=== PATIENT | male | born 1950 | race Caucasian/White ===

== ENCOUNTER 2023-08-25 13:22 | Emergency (ER) | payer OTHER ==
[2023-08-25] MEDS ORDERED: HYDROCODONE/APAP 7.5/325 MG TAB ONE (14:07)
[2023-08-25] MEDS ORDERED: IBUPROFEN 400 MG TAB ONE (14:07)
--- NOTE | 2023-08-25 14:09 | RAD REPORT ---
EXAM DESCRIPTION: RAD - Hand Left 3 View - 08/25/2023 2:02 pm CLINICAL HISTORY: PAIN COMPARISON: No comparisons FINDINGS/IMPRESSION: No acute fracture. No malalignment. Moderate degenerative changes are present a t the base of the thumb.
--- NOTE | 2023-08-25 14:10 | RAD REPORT ---
EXAM DESCRIPTION: RAD - Hand Right 3 View - 08/25/2023 2:02 pm CLINICAL HISTORY: PAIN COMPARISON: Hand Right 3 View dated 05/10/2016 FINDINGS/IMPRESSION: Longitudinally oriented nondisplaced fracture involving the fourth proximal pha lanx. No intra-articular extension. The fracture is centered at the mid diaphysis. Moderate degenerat kamini changes are present at the base of the thumb. Partially imaged plate in the distal ulna.
--- NOTE | 2023-08-25 14:50 | ER ---
Nurse's Notes [facility] Name: Nnamdi Smith Age: 73 yrs Sex: Male : 1950 Arrival Date: 08/25/2023 Time: 13:22 Bed 12 Private MD: Diagnosis: Nondisplaced fracture of proximal phalanx of other finger, initial encounter for closed fracture-right fourth finger Presentation: 08/24 13:30 Chief complaint: Patient states: fell and caught self with right hand, it hurts and is ll1 swollen. Coronavirus screen: At this time, the client does not indicate any symptoms associated with coronavirus-19. Ebola Screen: No symptoms or risks identified at this time. Initial Sepsis Screen: Does the patient meet any 2 criteria? No. Patient's initial sepsis screen is negative. Does the patient have a suspected source of infection? No. Patient's initial sepsis screen is negative. Risk Assessment: Do you want to hurt yourself or someone else? Patient reports no desire to harm self or others. Onset of symptoms is unknown. 13:30 Method Of Arrival: Ambulatory ll1 13:30 Acuity: ANDERS 4 ll1 Triage Assessment: 13:34 General: Appears in no apparent distress. Behavior is calm, cooperative, appropriate ll1 for age. Pain: Complains of pain in right hand. Musculoskeletal: Reports pain in right hand. Historical: - Allergies: 13:34 No Known Allergies; ll1 - PMHx: 13:34 Diabetes - NIDDM; ll1 - PSHx: 13:34 Appendectomy; Operative procedure on knee; ll1 - Immunization history:: Adult Immunizations up to date. - Infectious Disease History:: Denies. - Social history:: Smoking status: Patient denies any tobacco usage or history of. Screenin:22 [facility] ED Fall Risk Assessment (Adult) History of falling in the last 3 months, ld1 including since admission No falls in past 3 months (0 pts) Confusion or Disorientation No (0 pts) Intoxicated or Sedated No (0 pts) Impaired Gait No (0 pts) Mobility Assist Device Used No (0 pt) Altered Elimination No (0 pt) Score/Fall Risk Level 0 - 2 = Low Risk Oriented to surroundings, Maintained a safe environment, Educated pt \T\ family on fall prevention, incl call for assistance when getting out of bed, Assessed \T\ reinforced patient's understanding of fall precautions, Provided non-skid footwear, Hourly rounding (assess needs \T\ fall precautionary measures) done, Used ambulatory aids as needed (educated on \T\ assisted with), Used gait belt as appropriate. Abuse screen: Denies threats or abuse. Denies injuries from another. Nutritional screening: No deficits noted. Tuberculosis screening: No symptoms or risk factors identified. Assessment: 16:21 General: Appears in no apparent distress. comfortable, Behavior is calm, cooperative, ld1 appropriate for age. Pain: Denies pain. Neuro: Level of Consciousness is awake, alert, obeys commands, Oriented to person, place, time, situation, Appropriate for age. Cardiovascular: Capillary refill < 3 seconds Patient's skin is warm and dry. Respiratory: Airway is patent Respiratory effort is even, unlabored. GI: Abdomen is flat, non-distended. : No signs and/or symptoms were reported regarding the genitourinary system. EENT: No signs and/or symptoms were reported regarding the EENT system. Derm: No signs and/or symptoms reported regarding the dermatologic system. Musculoskeletal: No signs and/or symptoms reported regarding the musculoskeletal system. Vital Signs: 13:30 BP 156 / 73; Pulse 52; Resp 18; Temp 97; Pulse Ox 100% ; ll1 16:21 BP 149 / 72; Pulse 61; Resp 18; Pulse Ox 100% on R/A; ld1 ED Course: 13:25 Patient arrived in ED. ra3 13:25 Jd Barone PA is PHCP. cp 13:26 Jd Wynn MD is Attending Physician. cp 13:34 Triage completed. ll1 13:34 Arm band placed on left wrist. Patient placed in an exam room, on a stretcher, on pulse ll1 oximetry, Patient notified of wait time. 14:04 XRAY Hand RIGHT 3 View In Process Unspecified. EDMS 14:04 XRAY Hand LEFT 3 View In Process Unspecified. EDMS 14:47 Larry Torres MD is Referral Physician. cp 16:20 Kaela Campbell, ALEXSANDER is Primary Nurse. ld1 16:20 No provider procedures requiring assistance completed. Patient did not have IV access ld1 during this emergency room visit. Claude wrap to right wrist. 16:22 Patient has correct armband on for positive identification. Placed in gown. Bed in low ld1 position. Call light in reach. Side rails up X2. Pulse ox on. NIBP on. Door closed. Noise minimized. Warm blanket given. Administered Medications: 14:11 Not Given (Patient Refused): hydrocodone-acetaminophen(7.5 mg-325 mg) 1 tabs PO once; ld1 RASS on ADMIN: Combtv4, Very Agttd3, Agttd2, Rstlss1, AlertClm0, Drwsy-1, Lt Sdtn-2, Mod Sdtn-3, Dp Sdtn-4, UnArsble-5 14:11 Drug: Ibuprofen PO 800 mg PO once Route: PO; ld1 Medication: 16:22 VIS not applicable for this client. ld1 Outcome: 14:49 Discharge ordered by MD. 16:22 Discharged to home ambulatory, ld1 16:22 Condition: stable 16:22 Discharge instructions given to patient, Instructed on discharge instructions, follow up and referral plans. Demonstrated understanding of instructions, follow-up care, medications, Prescriptions given X 1, 16:37 Patient left the ED. ld1 Signatures: Dispatcher [employer] EDMS Jd Barone PA PA cp Lewis, Lynsay RN RN ll1 Kaela Campbell RN RN ld1 Erin Varghese ra3
--- NOTE | 2023-08-25 14:50 | EDPHYS ---
Physician Documentation [facility] Name: Nnamdi Smith Age: 73 yrs Sex: Male : 1950 Arrival Date: 08/25/2023 Time: 13:22 Bed 12 Private MD: ED Jd Eldridge HPI: 08/24 13:40 This 73 yrs old Male presents to ER via Ambulatory with complaints of Hand Injury. cp 13:40 The patient or guardian reports injury, pain. The complaints affect the right hand and cp left hand. Context: resulted from a fall, slipped. Onset: The symptoms/episode began/occurred today. Associated signs and symptoms: The patient has no apparent associated signs or symptoms. Historical: - Allergies: 13:34 No Known Allergies; ll1 - PMHx: 13:34 Diabetes - NIDDM; ll1 - PSHx: 13:34 Appendectomy; Operative procedure on knee; ll1 - Immunization history:: Adult Immunizations up to date. - Infectious Disease History:: Denies. - Social history:: Smoking status: Patient denies any tobacco usage or history of. ROS: 13:45 MS/extremity: Positive for injury or acute deformity, ecchymosis, pain, swelling, cp tenderness, of the right hand and left hand, Negative for paresthesias, 13:45 Constitutional: HX per HPI cp 13:45 All other systems are negative, Exam: 13:50 Constitutional: The patient appears in no acute distress, alert, awake, non-toxic, well cp developed, well nourished, 13:50 Head/Face: Normocephalic, atraumatic. cp 13:50 Neck: ROM/movement: is normal, is supple, without pain, no range of motions limitations, 13:50 Chest/axilla: Inspection: normal, 13:50 Cardiovascular: Rate: normal, Rhythm: regular, 13:50 Back: pain, is absent, ROM is normal, 13:50 Musculoskeletal/extremity: Extremities: noted in the right hand: decreased ROM, ecchymosis, swelling, tenderness, noted in the left hand: tenderness, no evidence of decreased ROM, deformity, Perfusion: the extremity is normally perfused throughout, the right hand and left hand Sensation intact. 13:50 Neuro: Orientation: to person, place \T\ time. Mentation: is normal, Gait: is steady, Vital Signs: 13:30 BP 156 / 73; Pulse 52; Resp 18; Temp 97; Pulse Ox 100% ; ll1 16:21 BP 149 / 72; Pulse 61; Resp 18; Pulse Ox 100% on R/A; ld1 Procedures: 15:00 Splinting: Splint applied to right hand using Orthoglass splint, ulna gutter type. cp applied by nurse. Examined by me, post splint application: neurovascular intact, Patient tolerated well. MDM: 13:39 Patient medically screened. cp 14:00 Differential diagnosis: dislocation, open fracture, closed fracture, contusion. cp 14:48 Data reviewed: vital signs, nurses notes, radiologic studies, plain films. cp 14:48 I considered the following discharge prescriptions or medication management in the emergency department Medications were administered in the Emergency Department. See MAR. Counseling: I had a detailed discussion with the patient and/or guardian regarding the historical points, exam findings, and any diagnostic results supporting the discharge/admit diagnosis, radiology results, the need for outpatient follow up, a orthopedic surgeon, to return to the emergency department if symptoms worsen or persist or if there are any questions or concerns that arise at home. Response to treatment: the patient's symptoms have markedly improved after treatment, and as a result, I will discharge patient. 08/24 13:34 Order name: XRAY Hand RIGHT 3 View; Complete Time: 14:39 08/24 14:39 Interpretation: Report reviewed. 08/24 13:34 Order name: XRAY Hand LEFT 3 View; Complete Time: 14:39 08/24 14:38 Order name: Splint - Ulnar Gutter; Complete Time: 16:31 cp Administered Medications: 14:11 Not Given (Patient Refused): hydrocodone-acetaminophen(7.5 mg-325 mg) 1 tabs PO once; ld1 RASS on ADMIN: Combtv4, Very Agttd3, Agttd2, Rstlss1, AlertClm0, Drwsy-1, Lt Sdtn-2, Mod Sdtn-3, Dp Sdtn-4, UnArsble-5 14:11 Drug: Ibuprofen PO 800 mg PO once Route: PO; ld1 Disposition Summary: 08/25/23 14:49 Discharge Ordered Notes: Location: Home cp Problem: new cp Symptoms: have improved cp Condition: Stable cp Diagnosis - Nondisplaced fracture of proximal phalanx of other finger, initial encounter for cp closed fracture - right fourth finger Followup: cp - With: Larry Torres MD - When: 1 week - Reason: Recheck today's complaints Discharge Instructions: - Discharge Summary Sheet cp - Finger Fracture, Adult cp Forms: - Medication Reconciliation Form cp - Antibiotic Education cp - Prescription Opioid Use cp - Patient Portal Instructions cp - Leadership Thank You Letter cp Prescriptions: - Ibuprofen 800 mg Oral Tablet - take 1 tablet ORAL route every 8 hours As needed take with food; 30 tablet; cp Refills: 0, Product Selection Permitted Addendum: 08/27/2023 07:46 Co-signature as Attending Physician, Jd Wynn MD I agree with the assessment and c mathis plan of care. Signatures: Dispatcher [employer] Jd Perez MD MD cha Page, Corey, PA PA cp Lewis, Lynsay RN RN ll1 Kaela Campbell RN RN ld1
[2023-08-25 17:17] VITALS: BP 149/72; TEMP 97; O2SAT 100
== END 2023-08-25 16:37 | disposition home or self-care (01) ==
LOC: ER 13:22
PROC: 2W3JX1Z Immobilization of Right Finger using Splint (ICD-10-PCS; principal; 2023-08-25)
DX: S62.644A Nondisplaced fracture of proximal phalanx of right ring finger, initial encounter for closed fracture (principal)
CPT/HCPCS: 99284

== ENCOUNTER 2024-02-27 16:09 | Emergency (ER) | payer OTHER ==
--- NOTE | 2024-02-27 18:35 | RAD REPORT ---
Procedure: Chest Single View HISTORY: Chest pain COMPARISON: none FINDINGS: The lungs appear clear of acute infiltrate. The lungs are moderately hyperaerated. No significant pleural effusion noted. The heart is normal size. IMPRESSION: Hyperaerated lungs probably COPD. No acute abnormality is displayed
[2024-02-27 18:50] LABS: Absolute Basophils 0.1 K/uL (0-0.5); Absolute Eosinophils 0.1 K/uL (0-0.5); Absolute Lymphocytes (CBC) 1.8 K/uL (0.7-4.9); Absolute Monocytes 0.6 K/uL (0.1-1.3); Absolute Neutrophil 3.7 K/uL (1.8-8.0); Eosinophils % 1.7 % (0-4.4); Hematocrit 44.3 % (39.6-49.0); Hemoglobin 14.7 g/dL (13.6-17.9); Lymphocytes % 28.5 % (15.3-44.8); MCH 29.9 pg (27.0-35.0); MCHC 33.2 g/dL (32.0-36.0); Monocytes % 9.6 % (3.3-12.3); Neutrophils % 59.2 % (41.7-73.7); Nucleated Red Blood Cells % 0.1 % (0-0); PT Prothrombin Time 11.9 SECONDS (9.4-12.5); Platelets 320 thou/uL (152-406); Protime INR 1.06; RBC Red Blood Cell Count 4.92 M/uL (4.33-5.43); Red Cell Distribution Width 13.8 % (12.1-15.2)
[2024-02-27 19:07] LABS: Albumin 4.5 g/dL (3.4-5.0); Albumin/Globulin Ratio 1.2 (1.1-1.8); Anion Gap 7.2 mEq/L (5.0-15.0); Bilirubin Direct 0.2 mg/dL (0-0.2); Bilirubin Indirect, Calculated 0.3 mg/dL (0.2-0.8); Bilirubin Total 0.5 mg/dL (0.2-1.0); Globulin 3.7 g/dL (2.3-3.5); Magnesium 2.3 mg/dL (1.6-2.4); Potassium 4.2 mEq/L (3.5-5.1); Protein, Total 8.2 g/dL (6.4-8.2); Troponin High Sensitivity 8.8 pg/mL (<58.9)
[2024-02-27] MEDS ORDERED: cloNIDine HCL 0.1 MG TAB ONE (20:07)
--- NOTE | 2024-02-27 20:15 | ER ---
Nurse's Notes [facility] Name: Nnamdi Smith Age: 73 yrs Sex: Male : 1950 Arrival Date: 02/27/2024 Time: 16:09 Bed 9 Private MD: Diagnosis: Essential (primary) hypertension;First degree AV block Presentation: 02/26 16:26 Chief complaint: Sent by Dr. Velázquez for abnormal EKG, showed sinus otoniel with first hb degree block and moderate ST depression. Pt denies pain/SOB. Coronavirus screen: At this time, the client does not indicate any symptoms associated with coronavirus-19. Ebola Screen: No symptoms or risks identified at this time. Initial Sepsis Screen: Does the patient meet any 2 criteria? No. Patient's initial sepsis screen is negative. Does the patient have a suspected source of infection? No. Patient's initial sepsis screen is negative. Risk Assessment: Do you want to hurt yourself or someone else? Patient reports no desire to harm self or others. Onset of symptoms was February 27, 2024. 16:26 Method Of Arrival: Ambulatory hb 16:26 Acuity: ANDERS 3 hb Historical: - Allergies: 16:30 No Known Allergies; hb - PMHx: 16:30 Diabetes - NIDDM; Hypertension (Diabetes - NIDDM); hb - PSHx: 16:30 Appendectomy; Operative procedure on knee; hb - Immunization history:: Adult Immunizations up to date. - Infectious Disease History:: Denies. - Social history:: Smoking status: Patient denies any tobacco usage or history of. Screenin:08 [facility] ED Fall Risk Assessment (Adult) History of falling in the last 3 months, dd2 including since admission No falls in past 3 months (0 pts). [facility] ED Fall Risk Assessment (Adult) History of falling in the last 3 months, including since admission Confusion or Disorientation No (0 pts) Intoxicated or Sedated No (0 pts) Impaired Gait No (0 pts) Mobility Assist Device Used No (0 pt) Altered Elimination No (0 pt) Score/Fall Risk Level 0 - 2 = Low Risk Oriented to surroundings, Maintained a safe environment, Educated pt \T\ family on fall prevention, incl call for assistance when getting out of bed, Assessed \T\ reinforced patient's understanding of fall precautions, Hourly rounding (assess needs \T\ fall precautionary measures) done. Abuse screen: Denies threats or abuse. Nutritional screening: No deficits noted. Tuberculosis screening: No symptoms or risk factors identified. Assessment: 20:08 General: Appears in no apparent distress. Behavior is calm, cooperative, appropriate dd2 for age. Pain: Denies pain. Neuro: Espinoza Agitation-Sedation Scale (RASS): 0 - Alert and Calm Level of Consciousness is awake, alert, obeys commands, Oriented to person, place, time, situation, Appropriate for age. Cardiovascular: Reports ABNORMAL LABS Heart tones S1 S2 present Patient's skin is warm and dry. Respiratory: Airway is patent Respiratory effort is even, unlabored, Respiratory pattern is regular, symmetrical, Breath sounds are clear bilaterally. GI: No deficits noted. No signs and/or symptoms were reported involving the gastrointestinal system. Abdomen is non-distended. : No deficits noted. No signs and/or symptoms were reported regarding the genitourinary system. EENT: No deficits noted. No signs and/or symptoms were reported regarding the EENT system. Derm: No deficits noted. No signs and/or symptoms reported regarding the dermatologic system. Musculoskeletal: Circulation, motion, and sensation intact. Range of motion: intact in all extremities. 20:10 Reassessment: D/C ON HOLD FOR MEDICATION ADMINISTRATION AND BP RE-CHECK. dd2 Vital Signs: 16:26 BP 186 / 71; Pulse 51; Resp 16; Temp 97.3; Pulse Ox 100% on R/A; Weight 83.01 kg; hb Height 6 ft. 1 in. ; Pain 0/10; 20:13 BP 226 / 98; Pulse 51; sb4 20:30 BP 207 / 79; Pulse 59; Resp 16; Pulse Ox 99% ; dd2 20:59 BP 197 / 77; Pulse 62; Resp 16; Temp 98.3; Pulse Ox 100% ; Pain 0/10; dd2 16:26 Body Mass Index 24.14 (83.01 kg, 185.42 cm) hb 16:26 Pain Scale: Adult hb 20:59 Pain Scale: Adult dd2 Ekaterina Coma Score: 20:08 Eye Response: spontaneous(4). Motor Response: obeys commands(6). Verbal Response: dd2 oriented(5). Total: 15. ED Course: 16:12 Patient arrived in ED. im 16:18 Gertrude Garber PA-C is PHCP. sb4 16:18 Frank Corley MD is Attending Physician. sb4 16:30 Triage completed. hb 16:30 Arm band placed on. hb 18:06 XRAY Chest (1 view) In Process Unspecified. EDMS 19:46 DAHLIA LYNN, RN is Primary Nurse. dd2 20:08 Patient has correct armband on for positive identification. Bed in low position. Call dd2 light in reach. Client placed on continuous cardiac and pulse oximetry monitoring. NIBP monitoring applied. Door closed. Noise minimized. Pillow given. Verbal reassurance given. 20:08 No provider procedures requiring assistance completed. Patient maintains SpO2 dd2 saturation greater than 95% on room air. 20:15 Humberto Encinas MD is Referral Physician. sb4 20:59 Provided Education on: D/C EDUCATION. dd2 20:59 IV discontinued, intact, bleeding controlled, No redness/swelling at site. Pressure dd2 dressing applied. Administered Medications: 20:10 Drug: cloNIDine PO 0.1 mg PO once Route: PO; dd2 20:48 Follow up: Response: No adverse reaction dd2 Medication: 20:08 VIS not applicable for this client. dd2 Outcome: 20:15 Discharge ordered by MD. sb4 20:59 Discharged to home ambulatory, dd2 20:59 Condition: stable 20:59 Discharge instructions given to patient, Instructed on discharge instructions, follow up and referral plans. Demonstrated understanding of instructions, follow-up care, 21:01 Patient left the ED. dd2 Signatures: Dispatcher [employer] EDCA Chapis Brannon RN RN Gertrude Garber PA-C PA-C sb4 Nuria Green DAHLIA LYNN, RN RN dd2
--- NOTE | 2024-02-27 20:15 | EDPHYS ---
Physician Documentation [facility] Name: Nnamdi Smith Age: 73 yrs Sex: Male : 1950 Arrival Date: 02/27/2024 Time: 16:09 Bed 9 Private MD: ED Physician Frank Corley HPI: 02/26 19:31 This 73 yrs old Male presents to ER via Ambulatory with complaints of Abnormal Lab sb4 Results - EKG. 19:31 Patient was at his primary care's office today and sent here for further evaluation sb4 because his blood pressure was elevated and his EKG supposedly showed some changes. He denies any chest pain, shortness of breath, blurry vision, headache, dizziness. Primary care stated that his blood pressure was 184/98 and his EKG showed sinus bradycardia with a first-degree block and ST depressions in the lateral leads which is new compared to prior. Historical: - Allergies: 16:30 No Known Allergies; hb - PMHx: 16:30 Diabetes - NIDDM; Hypertension (Diabetes - NIDDM); hb - PSHx: 16:30 Appendectomy; Operative procedure on knee; hb - Immunization history:: Adult Immunizations up to date. - Infectious Disease History:: Denies. - Social history:: Smoking status: Patient denies any tobacco usage or history of. ROS: 19:31 Constitutional: Negative for fever, chills, and weight loss, sb4 19:31 All other systems are negative, Exam: 19:31 Constitutional: This is a well developed, well nourished patient who is awake, alert, sb4 and in no acute distress. Head/Face: Normocephalic, atraumatic. Eyes: Extra-ocular motions intact. Periorbital areas with no swelling, redness, or edema. ENT: Mucous membranes moist. Cardiovascular: Regular rate and rhythm with a normal S1 and S2. Respiratory: No increased work of breathing, no retractions or nasal flaring. Abdomen/GI: Soft, non-tender, no distension. Skin: Warm, dry with normal turgor. Normal color with no rashes, no lesions, and no evidence of cellulitis. Vital Signs: 16:26 BP 186 / 71; Pulse 51; Resp 16; Temp 97.3; Pulse Ox 100% on R/A; Weight 83.01 kg; hb Height 6 ft. 1 in. ; Pain 0/10; 20:13 BP 226 / 98; Pulse 51; sb4 20:30 BP 207 / 79; Pulse 59; Resp 16; Pulse Ox 99% ; dd2 20:59 BP 197 / 77; Pulse 62; Resp 16; Temp 98.3; Pulse Ox 100% ; Pain 0/10; dd2 16:26 Body Mass Index 24.14 (83.01 kg, 185.42 cm) hb 16:26 Pain Scale: Adult hb 20:59 Pain Scale: Adult dd2 Ekaterina Coma Score: 20:08 Eye Response: spontaneous(4). Motor Response: obeys commands(6). Verbal Response: dd2 oriented(5). Total: 15. MDM: 16:48 Medical Screening Exam initiated sb4 20:04 Data reviewed: vital signs, nurses notes, lab test result(s), EKG, radiologic studies, sb4 and as a result, I will discharge patient. Counseling: I had a detailed discussion with the patient and/or guardian regarding the historical points, exam findings, and any diagnostic results supporting the discharge/admit diagnosis, the presence of at least one elevated blood pressure reading (>120/80) during this emergency department visit, lab results, radiology results, the need for outpatient follow up, a densitometer reader, to return to the emergency department if symptoms worsen or persist or if there are any questions or concerns that arise at home. 20:14 ED course: patient has no complaints at this time- no chest pain, shortness of breath, sb4 dizziness, blurry vision, or headache. his EKG shows sinus bradycardia with nonspecific ST changes and 1st degree heart block. blood work is unremarkable. will discharge safely home at this time with instructions to follow up with densitometer reader. patient and friend are in agreement with the plan. 02/26 17:34 Order name: Basic Metabolic Panel; Complete Time: 19:08 sb4 02/26 17:34 Order name: CBC with Diff; Complete Time: 18:54 sb4 02/26 17:34 Order name: LFT's; Complete Time: 19:08 sb4 02/26 17:34 Order name: Magnesium; Complete Time: 19:08 sb4 02/26 17:34 Order name: NT PRO-BNP; Complete Time: 19:08 sb4 02/26 17:34 Order name: PT-INR; Complete Time: 18:51 sb4 02/26 17:34 Order name: Troponin HS; Complete Time: 19:08 sb4 02/26 17:34 Order name: XRAY Chest (1 view); Complete Time: 18:36 sb4 02/26 17:34 Order name: Cardiac monitoring; Complete Time: 20:04 sb4 02/26 17:34 Order name: EKG - Nurse/Tech; Complete Time: 19:37 sb4 02/26 17:34 Order name: IV Saline Lock; Complete Time: 19:37 sb4 02/26 17:34 Order name: Labs collected and sent; Complete Time: 19:48 sb4 02/26 17:34 Order name: O2 Per Protocol; Complete Time: 19:29 sb4 02/26 17:34 Order name: O2 Sat Monitoring; Complete Time: 19:29 sb4 EC:38 Rate is 50 beats/min. Rhythm is regular, Sinus bradycardia. VT interval is prolonged at sb4 224 msec. QRS interval is normal at 90 msec. QT interval is normal at 436 msec. No Q waves. T waves are Normal. No ST changes noted. Clinical impression: 1st degree heart block and Sinus bradycardia. Interpreted by me. Reviewed by me. Administered Medications: 20:10 Drug: cloNIDine PO 0.1 mg PO once Route: PO; dd2 20:48 Follow up: Response: No adverse reaction dd2 Disposition Summary: 02/27/24 20:15 Discharge Ordered Notes: Location: Home sb4 Problem: new sb4 Symptoms: are unchanged sb4 Condition: Stable sb4 Diagnosis - Essential (primary) hypertension sb4 - First degree AV block sb4 Followup: sb4 - With: Humberto Encinas MD - When: 2 - 3 days - Reason: Recheck today's complaints, Re-evaluation by your physician Discharge Instructions: - Discharge Summary Sheet sb4 - Hypertension, Adult, Pblb-sl-Rkek sb4 - How to Take Your Blood Pressure, Phtq-he-Lctw sb4 - First-Degree Atrioventricular Block sb4 Forms: - Patient Portal Instructions sb4 - Leadership Thank You Letter sb4 Addendum: 03/03/2024 02:35 I was immediately available for consultation during this patient's visit. I did not e c2 personally see the patient or discuss the patient with the KHURRAM. . Signatures: Dispatcher [employer] Chapis Mccoy, RN RN Gertrude Roman, KAITLIN PACampbell sb4 Frank Corley MD MD ec2 DAHLIA LYNN RN RN dd2
[2024-02-27 21:45] VITALS: BP 197/77; TEMP 98.3; O2SAT 100
--- NOTE | 2024-03-05 11:06 | EKG ---
Test Date: 2024-02-27 Test Time: 19:35:13 Quality Coordinator: VISHNU MEASUREMENT RESULTS: Intervals: Rate: 50 SC: 224 QRSD: 90 QT: 436 QTc: 397 [place]: P: 63 SC: 224 QRS: 76 T: 67 INTERPRETIVE STATEMENTS: Sinus bradycardia with 1st degree AV block Septal infarct, age undetermined Abnormal ECG Compared to ECG 02/02/2004 14:34:00 First degree AV block now present Myocardial infarct finding now present Electronically Signed On 03-05-24 10:58:40 PUPPET ENGINEER by Zohaib Rausch
== END 2024-02-27 21:01 | disposition home or self-care (01) ==
LOC: ER 16:09
DX: I44.0 Atrioventricular block, first degree (principal); E11.9 Type 2 diabetes mellitus without complications; I10 Essential (primary) hypertension
CPT/HCPCS: 36415; 71045; 80048; 80076; 83735; 83880; 84484; 85025; 85610; 93005; 99284